=== PATIENT | female | born 1965 | race Asian ===

== ENCOUNTER 2018-09-08 21:58 | Emergency (ER) | payer SELFPAY ==
[~2018-09-08] VITALS: Ht 154.9 cm; Wt 52.2 kg
[2018-09-08] MEDS ORDERED: LORazepam 1mg tab ORAL ONE (22:00)
--- NOTE | 2018-09-08 22:03 | Emergency Room Report ---
History of Present Illness General Chief Complaint: To Be Triaged Source: Patient, Family Member Present Illness HPI This is a 52-year-old female with no past medical history. She presents with chief complaint of headache and high blood pressure. Patient said that onset was after an argument with her brother. She said she developed anxiety and stress. Her neck and head started hurting. And her blood pressure was high. She said normally she is low blood pressure. No alcohol or drugs. No smoking. No fever chills but never had this problem before. No focal deficit. Denies any other complaint. Nothing made it better. Nothing made it worse. Allergies: Coded Allergies: No Known Allergies (Unverified , 09/08/18) Patient History Past Medical History: none, see triage record, old chart reviewed Past Surgical History: none Pertinent Family History: none Social History: Denies: smoking Now: No Immunizations: other Reviewed Nursing Documentation: PMH: Agreed; PSxH: Agreed Review of Systems Eye: Denies: eye pain, blurred vision ENT: Denies: ear pain, nose congestion, throat swelling Respiratory: Denies: cough, shortness of breath Cardiovascular: Denies: chest pain, palpitations Gastrointestinal: Denies: abdominal pain, diarrhea, nausea, vomiting Musculoskeletal: Denies: back pain, joint pain Skin: Denies: rash Neurological: Reports: headache; Denies: numbness Endocrine: Denies: increased thirst, increased urine Hematologic/Lymphatic: Denies: easy bruising All Other Systems: negative except mentioned in HPI Physical Exam vitals with high blood pressure Sp02 EP Interpretation: reviewed, normal General Appearance: well appearing, no apparent distress, alert Head: normocephalic, atraumatic Eyes: bilateral eye PERRL, bilateral eye EOMI ENT: hearing grossly normal, normal pharynx Neck: full range of motion, supple, no meningismus Respiratory: chest non-tender, lungs clear, normal breath sounds Cardiovascular #1: regular rate, rhythm, no murmur, tachycardia Gastrointestinal: normal bowel sounds, non tender, no mass, no organomegaly, no bruit, non-distended Musculoskeletal: back normal, gait/station normal, normal range of motion Psychiatric: anxious Skin: warm/dry Medical Decision Making Diagnostic Impression: Primary Impression: Headache Qualified Codes: R51 - Headache Additional Impression: Acute stress reaction ER Course Patient presents with an acute stress reaction with headache. Because of the severity of her headache, I was worried about intracranial bleed. Patient refused CT scan. She she felt better. She refused CT scan because she does not have insurance. I explained to the patient that I cannot rule out life- threatening issue without the CT scan. Patient is competent to make this decision not to have a diagnostic study. Status: improved Disposition: HOME, SELF-CARE Condition: Stable Additional Instructions: You are leaving AGAINST MEDICAL ADVICE. I cannot rule out that your headache may be secondary to a small bleed. Return if you change your mind or still having headache or any neurological deficit. Follow-up with your doctor in 7 days. Nakul Callaway MD Sep 08, 2018 22:03
[2018-09-08 22:15] VITALS: BP 154/79
[2018-09-08 22:28] VITALS: BP 154/79
== END 2018-09-08 22:28 | disposition home or self-care (01) ==
LOC: EMR 22:28
DX: R51 Headache (principal); F43.0 Acute stress reaction
CPT/HCPCS: 96372; 99282